=== PATIENT | male | born 1965 | race Native Hawaiian/Other Pacific Islander ===

== ENCOUNTER 2016-10-22 11:03 | Emergency (ER) | payer OTHER ==
[2016-10-22 11:16] VITALS: O2SAT 97
[2016-10-22] MEDS ORDERED: Lidocaine 5% Patch TD STA (11:35)
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
[2016-10-22] MEDS ORDERED: Lidocaine 5% Patch TD ONE (11:56)
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
[2016-10-22 12:16] VITALS: BP 150/80; PULSE 80; RESP 20; TEMP 98
== END 2016-10-22 12:14 | disposition home or self-care (01) ==
LOC: C.ER 11:03
DX: G89.29 Other chronic pain (principal); M54.5 Low back pain
CPT/HCPCS: 72100; 96372; 99283; J1885

== ENCOUNTER 2017-06-01 07:13 | Emergency (ER) | payer MEDICAID, OTHER ==
--- NOTE | 2017-06-01 07:57 | C.PDOC ---
History Of Present Illness 52 year old, with past medical history of diabetes, presents to ED for evaluation of dry cough for the past month. Patient states he experienced syncopal episode after severe coughing while on flight from [place] 2 days ago, and was given oxygen. Notes he returned from [place] yesterday. Patient admits to feeling short of breath only when coughing. He report similar coughing fits and syncope in the past. Patient is heavy smoker. Otherwise, denies chest pain, fever, chills, headache, dizziness, or any other associated symptoms at this time. Time Seen by Provider: 06/01/17 07:26 Chief Complaint (Nursing): Dizziness/Lightheaded History Per: Patient History/Exam Limitations: no limitations Onset/Duration Of Symptoms: Days Current Symptoms Are (Timing): Still Present Recent travel outside of the [place]: Yes Additional History Per: Family Past Medical History Reviewed: Historical Data, Nursing Documentation, Vital Signs Vital Signs: Last Vital Signs Temp 98.3 F 06/01/17 09:28 Pulse 62 06/01/17 09:04 Resp 21 06/01/17 09:04 BP 138/88 06/01/17 09:04 Pulse Ox 96 06/01/17 09:20 - Medical History PMH: Diabetes, HTN (PT DENIES) Denies: COPD, Emphysema Family History: States: Unknown Family Hx - Social History Hx Tobacco Use: Yes Hx Alcohol Use: No Hx Substance Use: No - Immunization History Hx Tetanus Toxoid Vaccination: No Hx Influenza Vaccination: No Hx Pneumococcal Vaccination: No Review Of Systems Except As Marked, All Systems Reviewed And Found Negative. Constitutional: Negative for: Fever, Chills Cardiovascular: Negative for: Chest Pain, Palpitations Respiratory: Positive for: Cough, Shortness of Breath. Negative for: Hemoptysis , Sputum Gastrointestinal: Negative for: Nausea, Vomiting, Abdominal Pain Neurological: Positive for: Other (syncope). Negative for: Headache, Dizziness Physical Exam - Physical Exam Appears: Non-toxic, No Acute Distress Skin: Normal Color, Warm, Dry Head: Atraumatic, Normacephalic Eye(s): bilateral: Normal Inspection, PERRL, EOMI Ear(s): Bilateral: Normal Oral Mucosa: Moist Throat: Normal, No Erythema, No Exudate Neck: Normal ROM, Supple Chest: Symmetrical Cardiovascular: Rhythm Regular, No Murmur Respiratory: Normal Breath Sounds, No Rales, No Rhonchi, No Wheezing Gastrointestinal/Abdominal: Soft, No Tenderness Extremity: Normal ROM, No Pedal Edema, No Deformity Neurological/Psych: Oriented x3, Normal Speech Gait: Steady ED Course And Treatment - Laboratory Results Result Diagrams: 06/01/17 07:55 06/01/17 07:55 Lab Interpretation: No Acute Changes ECG: Interpreted By Me, Viewed By Me ECG Rhythm: Sinus Rhythm ECG Interpretation: No Acute Changes Interpretation Of ECG: Ns at 63 bpm with rightward axis, no ST-T changes O2 Sat by Pulse Oximetry: 96 (RA) Pulse Ox Interpretation: Normal - Radiology CXR: Interpreted by Me, Viewed By Me CXR Interpretation: Yes: Heart Size. No: Infiltrates, COPD Medical Decision Making Medical Decision Making: Impression: cough x1 month, syncopal episode 1 day ago Plan: * Blood work * Urinalysis * EKG * CXR Prior records reviewed: patient has been seen in the past for similar symptoms and syncope from vasovagal Reassess: All labs reviewed and unremarkable. EKG shows no acute changes. Patient remained afebrile alert and oriented in no distress. I explained lab and imaging results. He is stable for discharge. I counseled patient on smoking cessation and advised follow up in the clinic and with pulmonology if symptoms persist. Disposition Counseled Patient/Family Regarding: Studies Performed, Diagnosis, Need For Followup, Rx Given, Smoking Cessation - Disposition Referrals: Emma Cordova MD [Staff Provider] - Disposition: HOME/ ROUTINE Disposition Time: 09:19 Condition: GOOD Additional Instructions: Follow up with your primary medical doctor or clinic in 2-5 days for further evaluation. Take medications as prescribed. Return to the emergency department at any time if symptoms persist or worsen. Prescriptions: Albuterol HFA [Ventolin HFA 90 mcg/actuation (8 g)] 1 puff IH Q4 #1 puff Prednisone 50 mg PO DAILY #5 tablet Instructions: Exacerbation of COPD (DC) Forms: [facility] (Tajik) - POA Present On Arrival: None - Clinical Impression Clinical Impression: Syncope, COPD (chronic obstructive pulmonary disease) - PA / FOREST PATHOLOGIST / Resident Statement MD/DO has reviewed & agrees with the documentation as recorded. - Scribe Statement The provider has reviewed the documentation as recorded by the Scribe Ching Washburn All medical record entries made by the Scribe were at my direction and personally dictated by me. I have reviewed the chart and agree that the record accurately reflects my personal performance of the history, physical exam, medical decision making, and the department course for this patient. I have also personally directed, reviewed, and agree with the discharge instructions and disposition.
[2017-06-01 08:01] LABS: BASO # 0.1 K/uL (0.0-0.2); BASO % 0.9 % (0.0-2.0); EOS # 0.3 K/uL (0.0-0.7); HEMOGLOBIN 14.9 g/dL (12.0-18.0); LYMPH # 2.2 K/uL (1.0-4.3); LYMPH % 27.6 % (20.0-40.0); MEAN CELL VOLUME 85.9 fL (80.0-94.0); MEAN CORPUSCULAR HEMOGLOBIN 29.9 pg (27.0-31.0); MEAN CORPUSCULAR HGB CONC 34.8 g/dL (33.0-37.0); MEAN PLATELET VOLUME 7.6 fL (7.2-11.7); MONO # 0.6 K/uL (0.0-0.8); MONO % 7.2 % (0.0-10.0); NEUT # 4.8 K/uL (1.8-7.0); NEUT % 60.3 % (50.0-75.0); NRBC % 0.1 % (0.0-2.0); RED CELL DISTRIBUTION WIDTH 13.1 % (11.5-14.5); WHITE BLOOD COUNT 7.9 K/uL (4.8-10.8)
[2017-06-01 08:08] LABS: INR 1.1
[2017-06-01 08:27] LABS: SQUAMOUS EPITHIAL 1 /hpf (0-5); URINE BILIRUBIN NEGATIVE (NEGATIVE); URINE BLOOD NEGATIVE (NEGATIVE); URINE CLARITY Clear (Clear); URINE COLOR Yellow (YELLOW); URINE GLUCOSE (UA) NORMAL (Normal); URINE LEUKOCYTE ESTERASE NEG Leu/uL (Negative); URINE PROTEIN NEGATIVE (NEGATIVE); URINE UROBILINOGEN NORMAL mg/dL (0.2-1.0)
[2017-06-01 08:34] LABS: ALB/GLOB RATIO 1.1 (1.0-2.1); ALBUMIN 4.1 g/dL (3.5-5.0); ALT/SGPT 42 U/L (21-72); AST/SGOT 40 U/L (17-59); BLOOD UREA NITROGEN 11 mg/dL (9-20); CALCIUM 8.8 mg/dl (8.6-10.4); GFR AFRICAN-AMERICAN > 60; GFR NON-AFRICAN AMERICAN > 60; HDL CHOLESTEROL 38 mg/dL (30-70)
[2017-06-01 08:45] LABS: LDL CHOLESTEROL 135 mg/dL (0-129)
[2017-06-01 08:50] LABS: B-TYPE NATRIURETIC PEPTIDE 58.4 pg/mL (0-900); CK-MB 11.1 ng/mL (0.0-3.38)
[2017-06-01 09:04] VITALS: BP 138/88; PULSE 62; RESP 21
[2017-06-01 09:21] VITALS: O2SAT 96
[2017-06-01 09:28] VITALS: TEMP 98.3
--- NOTE | 2017-06-01 10:03 | RAD ---
Chest x-ray single frontal view History: Cough. Shortness of breath. Comparison: None available. Findings: Mild venous congestion. Right hilar prominence. Mild patchy increased markings at the left lung base. Upper lobe granulomatous changes. Heart size within normal limits. Impression: Mild venous congestion. Right hilar prominence. Mild patchy increased markings at the left lung base. Upper lobe granulomatous changes.
== END 2017-06-01 09:30 | disposition home or self-care (01) ==
LOC: C.ER 07:13
DX: J44.9 Chronic obstructive pulmonary disease, unspecified (principal); R55 Syncope and collapse; Z72.0 Tobacco use

== ENCOUNTER 2018-02-06 14:31 | Emergency (ER) | payer MEDICAID, OTHER ==
[2018-02-06 14:52] VITALS: RESP 18; TEMP 97.5
--- NOTE | 2018-02-06 16:01 | RAD ---
Date of service: 02/06/2018 PROCEDURE: Radiographs of the Left Shoulder HISTORY: r/o fx COMPARISON: No prior. FINDINGS: BONES: No fracture seen. An approximately 4 mm ossification closely approximates the humeral tuberosities-calcific rotator cuff tendinopathy and/or calcific bursitis are bleed most likely considerations. A pedunculated osteophyte although not excluded appears less likely. JOINTS: Minimal acromioclavicular and minimal glenohumeral arthrosis. Mild left apophyseal joint arthropathy noted. Moderate right lateral thoracic marginal osteophytosis. SOFT TISSUES: Normal. OTHER FINDINGS: None. IMPRESSION: No fracture or lytic lesions. Probable left calcific rotator cuff tendinopathy and/or calcific bursitis.
[2018-02-06 16:19] VITALS: BP 138/72; PULSE 72; O2SAT 98
--- NOTE | 2018-02-06 17:46 | C.PDOC ---
History Of Present Illness 52 y/o male presents to the ER complaining of left shoulder pain which has been present for the past 1 week. Patient stated that he took Motrin with relief. Denies having trauma,fall, injuries, CP, SOB, weakness and numbness in left arm. Time Seen by Provider: 02/06/18 14:50 Chief Complaint (Nursing): Upper Extremity Problem/Injury History Per: Patient History/Exam Limitations: no limitations Onset/Duration Of Symptoms: Days Current Symptoms Are (Timing): Still Present Severity: Moderate Past Medical History Reviewed: Historical Data, Nursing Documentation, Vital Signs Vital Signs: Last Vital Signs Temp 97.5 F L 02/06/18 14:48 Pulse 72 02/06/18 16:18 Resp 18 02/06/18 16:18 BP 138/72 02/06/18 16:18 Pulse Ox 98 02/06/18 16:18 - Medical History PMH: Diabetes, HTN (PT DENIES) Denies: COPD, Emphysema Surgical History: No Surg Hx Family History: States: No Known Family Hx - Social History Hx Tobacco Use: Yes Hx Alcohol Use: No Hx Substance Use: No - Immunization History Hx Tetanus Toxoid Vaccination: No Hx Influenza Vaccination: No Hx Pneumococcal Vaccination: No Review Of Systems Except As Marked, All Systems Reviewed And Found Negative. Cardiovascular: Negative for: Chest Pain Respiratory: Negative for: Shortness of Breath Musculoskeletal: Positive for: Shoulder Pain (left shoulder pain) Neurological: Negative for: Weakness, Numbness Physical Exam - Physical Exam Appears: Non-toxic, No Acute Distress Skin: Normal Color, Warm, Dry Head: Atraumatic, Normacephalic Eye(s): bilateral: Normal Inspection Nose: Normal Oral Mucosa: Moist Neck: Supple Chest: Symmetrical Cardiovascular: Rhythm Regular Respiratory: Normal Breath Sounds, No Rales, No Rhonchi, No Wheezing Extremity: Normal ROM, Tenderness (tenderness to lateral aspect of left shoulder), No Swelling Neurological/Psych: Oriented x3, Normal Speech ED Course And Treatment O2 Sat by Pulse Oximetry: 98 (RA) Pulse Ox Interpretation: Normal - Other Rad N-Lhr-Yilcetcv X-Ray: Viewed By Me, Read By Radiologist Interpretation: Date of service: 02/06/2018. PROCEDURE: Radiographs of the Left Shoulder. HISTORY: r/o fx. COMPARISON: No prior. FINDINGS: BONES: No fracture seen. An approximately 4 mm ossification closely approximates the humeral tuberosities-calcific rotator cuff tendinopathy and/or calcific bursitis are bleed most likely considerations. A pedunculated osteophyte although not excluded appears less likely. JOINTS: Minimal acromioclavicular and minimal glenohumeral arthrosis. Mild left apophyseal joint arthropathy noted. Moderate right lateral thoracic marginal osteophytosis. SOFT TISSUES: Normal. OTHER FINDINGS: None. IMPRESSION: No fracture or lytic lesions. Probable left calcific rotator cuff tendinopathy and/or calcific bursitis. Medical Decision Making Medical Decision Making: Plan: --X-Ray-Left Shoulder Updates: X-Ray-Left Shoulder is negative for fracture. Patient has been discharged and instructed to follow up with PMD in 2-3 days. Disposition - Disposition Referrals: Kyung Jason, [Non-Staff] - Disposition: HOME/ ROUTINE Disposition Time: 16:00 Condition: GOOD Additional Instructions: HERO WALLACE, thank you for letting us take care of you today. The emergency medical care you received today was directed at your acute symptoms. If you were prescribed any medication, please fill it and take as directed. It may take several days for your symptoms to resolve. Return to the Emergency Department if your symptoms worsen, do not improve, or if you have any other problems. Please contact your doctor or call one of the physicians/clinics you have been referred to that are listed on the Patient Visit Information form that is included in your discharge packet. Bring any paperwork you were given at discharge with you along with any medications you are taking to your follow up visit. Our treatment cannot replace ongoing medical care by a primary care provider outside of the emergency department. Thank you for allowing the [facility] team to be part of your care today. Levon patel pwith your [facility] care dcotor in 2-3 days for re-evaluation and further management. Prescriptions: Cyclobenzaprine [Cyclobenzaprine HCl] 10 mg PO Q8 PRN #20 tab PRN Reason: Muscle Spasm Ibuprofen [Motrin] 600 mg PO Q6 PRN #20 tab PRN Reason: Pain, Moderate (4-7) Instructions: Shoulder Sprain (DC) Forms: [employer] (Barbadian) - Clinical Impression Clinical Impression: Shoulder sprain - Scribe Statement The provider has reviewed the documentation as recorded by the Sylvia Johnson Provider Attestation: All medical record entries made by the Sylvia were at my direction and personally dictated by me. I have reviewed the chart and agree that the record accurately reflects my personal performance of the history, physical exam, medical decision making, and the department course for this patient. I have also personally directed, reviewed, and agree with the discharge instructions and disposition.
== END 2018-02-06 16:19 | disposition home or self-care (01) ==
LOC: C.ER 14:31
DX: S43.402A Unspecified sprain of left shoulder joint, initial encounter (principal); X58.XXXA Exposure to other specified factors, initial encounter

== ENCOUNTER 2018-05-22 13:32 | Observation (INO) | payer OTHER ==
[2018-05-22 13:51] VITALS: BMI 30.7
[2018-05-22] MEDS ORDERED: Aspirin 325 mg EC Tablets PO STA (13:55)
[2018-05-22 14:10] LABS: BASO % 0.2 % (0.0-2.0); EOS # 0.4 K/uL (0.0-0.7); EOS % 4.6 % (0.0-4.0); HEMOGLOBIN 15.3 g/dL (12.0-18.0); LYMPH # 2.8 K/uL (1.0-4.3); LYMPH % 34.4 % (20.0-40.0); MEAN CELL VOLUME 87.3 fL (80.0-94.0); MEAN CORPUSCULAR HEMOGLOBIN 29.9 pg (27.0-31.0); MEAN CORPUSCULAR HGB CONC 34.3 g/dL (33.0-37.0); MEAN PLATELET VOLUME 7.7 fL (7.2-11.7); MONO # 0.6 K/uL (0.0-0.8); MONO % 7.7 % (0.0-10.0); NEUT # 4.2 K/uL (1.8-7.0); NEUT % 53.1 % (50.0-75.0); NRBC % 0.1 % (0.0-2.0); RBC 5.1 Mil/uL (4.40-5.90); RED CELL DISTRIBUTION WIDTH 13.2 % (11.5-14.5)
--- NOTE | 2018-05-22 14:26 | RAD ---
HISTORY: SOB COMPARISON: Chest x-ray performed 06/01/17 TECHNIQUE: Chest, one view. FINDINGS: Examination limited by habitus. LUNGS: No focal consolidation. Please note that chest x-ray has limited sensitivity for the detection of pulmonary masses. PLEURA: No significant pleural effusion identified. No definite pneumothorax . CARDIOVASCULAR: Heart size appears within normal limits. OSSEOUS STRUCTURES: Degenerative changes. VISUALIZED UPPER ABDOMEN: Unremarkable. OTHER FINDINGS: None. IMPRESSION: No focal consolidation identified.
[2018-05-22 14:31] LABS: ALB/GLOB RATIO 1.5 (1.0-2.1); ALBUMIN 4.6 g/dL (3.5-5.0); ALT/SGPT 22 U/L (21-72); AST/SGOT 37 U/L (17-59); BLOOD UREA NITROGEN 12 mg/dL (9-20); CALCIUM 9.6 mg/dl (8.6-10.4); GFR NON-AFRICAN AMERICAN > 60
[2018-05-22 14:40] LABS: B-TYPE NATRIURETIC PEPTIDE 29.8 pg/mL (0-900)
--- NOTE | 2018-05-22 15:06 | C.PDOC ---
History Of Present Illness 53 year old male presents to ED with complaint of chest pain for the past 2 days. Patient also complaining of associated SOB. He had a PMHx of hyperlipidemia and diabetes. Patient is a smoker. He denies nausea and vomiting. Time Seen by Provider: 05/22/18 13:50 Chief Complaint (Nursing): Chest Pain History Per: Patient History/Exam Limitations: no limitations Onset/Duration Of Symptoms: Days (2) Current Symptoms Are (Timing): Still Present Quality: "Pain" Associated Symptoms: Dyspnea. denies: Nausea Modifying Factors: None Alleviating Factors: None Past Medical History Reviewed: Historical Data, Nursing Documentation, Vital Signs Vital Signs: Last Vital Signs Temp 98.0 F 05/22/18 13:34 Pulse 67 05/22/18 14:11 Resp 18 05/22/18 14:11 BP 152/82 H 05/22/18 14:11 Pulse Ox 96 05/22/18 14:11 - Medical History PMH: Diabetes, HTN (PT DENIES) Denies: COPD, Emphysema Surgical History: No Surg Hx Family History: States: Unknown Family Hx - Social History Hx Tobacco Use: Yes Hx Alcohol Use: No Hx Substance Use: No - Immunization History Hx Tetanus Toxoid Vaccination: No Hx Influenza Vaccination: No Hx Pneumococcal Vaccination: No Review Of Systems Except As Marked, All Systems Reviewed And Found Negative. Cardiovascular: Positive for: Chest Pain Respiratory: Positive for: Shortness of Breath Gastrointestinal: Negative for: Nausea, Vomiting Physical Exam - Physical Exam Appears: Well, Non-toxic, No Acute Distress Skin: Normal Color, Warm, Dry Head: Atraumatic, Normacephalic Eye(s): bilateral: Normal Inspection, PERRL, EOMI Chest: Symmetrical, No Deformity, No Tenderness Cardiovascular: Rhythm Regular, No Murmur Respiratory: Normal Breath Sounds, No Rales, No Rhonchi, No Wheezing Gastrointestinal/Abdominal: Soft, No Tenderness Extremity: Bilateral: Atraumatic, Normal Color And Temperature, Normal ROM Neurological/Psych: Oriented x3, Normal Speech, Normal Cognition ED Course And Treatment - Laboratory Results Result Diagrams: 05/23/18 06:02 05/23/18 05:45 Lab Results: Troponin I < 0.0120 ng/mL (0.00-0.120) 05/22/18 14:06 NT-Pro-B Natriuret Pep 29.8 pg/mL (0-900) 05/22/18 14:06 Total Bilirubin 0.6 mg/dL (0.2-1.3) 05/22/18 14:06 AST 37 U/L (17-59) 05/22/18 14:06 ALT 22 U/L (21-72) 05/22/18 14:06 Alkaline Phosphatase 56 U/L (38-126) 05/22/18 14:06 Total Protein 7.7 g/dL (6.3-8.3) 05/22/18 14:06 Albumin 4.6 g/dL (3.5-5.0) 05/22/18 14:06 Globulin 3.1 gm/dL (2.2-3.9) 05/22/18 14:06 Albumin/Globulin Ratio 1.5 (1.0-2.1) 05/22/18 14:06 O2 Sat by Pulse Oximetry: 96 (in RA) - Other Rad CXR X-Ray: Interpreted by Me, Viewed By Me Interpretation: IMPRESSION: No focal consolidation identified. Medical Decision Making Medical Decision Making: Assessment: Chest pain Plan: EKG and CXR ordered for patient Labs ordered with troponin and CBC Patient given Aspirin PO Patient admitted to 's service for observation. Disposition - Disposition Disposition: HOSPITALIZED Disposition Time: 16:05 Condition: GOOD - Clinical Impression Clinical Impression: Chest pain - Scribe Statement The provider has reviewed the documentation as recorded by the Scribe (Hollie Watts) All medical record entries made by the Scribe were at my direction and personally dictated by me. I have reviewed the chart and agree that the record accurately reflects my personal performance of the history, physical exam, medical decision making, and the department course for this patient. I have also personally directed, reviewed, and agree with the discharge instructions and disposition.
[2018-05-22] MEDS ORDERED: Heparin25000 units/250ml 1/2NS 25,000 UNITS/250 ML BAG IV PRN (19:41)
--- NOTE | 2018-05-22 19:59 | PCM.RRT ---
CONSULTING TECHNICAL MANAGER Nurses Assessment - Situation Date: 05/22/18 Time CONSULTING TECHNICAL MANAGER was called: 19:38 CONSULTING TECHNICAL MANAGER Responder Arrival Time:: 19:38 CONSULTING TECHNICAL MANAGER Location:: Med/Surg CONSULTING TECHNICAL MANAGER Reason for Call: Chest Pain (EKG changes) CONSULTING TECHNICAL MANAGER Called By: Physician - Respiratory CONSULTING TECHNICAL MANAGER Delivery Method: Nasal Cannula @L/min (5) Received Nebulizer Treatments: No Was the Patient Ventilated with Bag/Mask 100% O2?: No Secretions Suctioned?: No Was the Patient Intubated?: No Was the Patient Placed on a Ventilator?: No - Diagnostic Test Ordered EKG: Yes (ST elevation inferior leads) Chest X-Ray: No CT Scan: No CPR started during CONSULTING TECHNICAL MANAGER?: No - Vital Signs Vital Signs: 141/82 BP, 69 HR, 98% SpO2 on 3L NC - Adriana Coma Scale Coma Scale Eye Opening: Spontaneous Coma Scale Motor: Obeys Commands Movement Coma Scale Verbal: Oriented Coma Scale Total: 15 - Recommendations 5) CONSULTING TECHNICAL MANAGER Level of Care Recommendations: Transfer to ICU Plan - Assessment of Findings&Treatment Plan CONSULTING TECHNICAL MANAGER called at 7: 38PM for chest pain and EKG changes which was immediately converted into a Code Heart. Patient vitals on arrival: 141/82 BP, 69 HR, 98% SpO2 on 3L NC. Patient endorsed 6/10 left sided chest pain and mild shortness of breath. Patient given ASA at 2pm in the ED. At the time of Code Heart, patient was given Brillenta 180mg, Crestor 40mg, Heparin 5000mg IV, followed by a heparin drip. Patient reported no change in pain. Vitals remained stable. Patient was transferred to ICU at 8:03PM then to the general labor forklift operator at 8:10PM where he underwent cardiac cath by Dr. Ellsworth. Patient was found to have Patent coronaries, Sluggish JOSE A 2 coronary flow, and Normal EF. Plan for ASA, aggressive Statins, BP control, diet, smoking cessation and weight management for now. Patient to return to ICU for overnight observation.
[2018-05-22] MEDS ORDERED: Iodixanol 320 MG/ML 100 ML BOTTLE IV ONE (20:13)
[2018-05-22] MEDS ORDERED: Lidocaine 2% MPF (5 ml) Inj ONE (20:14)
[2018-05-22] MEDS ORDERED: Midazolam 2 MG/2 ML VIAL ONE (20:28)
--- NOTE | 2018-05-22 21:19 | CP.PCM.CON ---
History of Present Illness - History of Present Illness History of Present Illness: Code heart activated due to Inferior ST elevation and ongoing left sided chest discomfort Hx of DM2. HTN, hyperlipidemia, obesity, Tobacco, FHx of [place] S/P Cath 1. Patent coronaries 2. Sluggish JOSE A 2 coronary flow 3. Normal EF Plan: ASA, aggressive Statins, BP, diet, smokiing cessation and weight management for now Overnight ICU observation Transfer to floor in am Past Patient History - Past Social History Smoking Status: Heavy Smoker > 10 Cigarettes Daily - CARDIAC Hx Hypertension: Yes (PT DENIES) - PULMONARY Hx Chronic Obstructive Pulmonary Disease (COPD): No Hx Emphysema: No - NEUROLOGICAL Hx Neurological Disorder: Yes Hx Dizziness: Yes - ENDOCRINE/METABOLIC Hx Endocrine Disorders: Yes Hx Diabetes Mellitus Type 2: Yes - MUSCULOSKELETAL/RHEUMATOLOGICAL Hx Falls: No - PSYCHIATRIC Hx Substance Use: No - SURGICAL HISTORY Hx Surgeries: No - ANESTHESIA Hx Anesthesia: No Meds Allergies/Adverse Reactions: Allergies Allergy/AdvReac Type Severity Reaction Status Date / Time No Known Allergies Allergy Verified 05/22/18 13:49 - Medications Medications: Current Medications Aspirin (Ecotrin) 81 mg PO DAILY [facility] Enoxaparin Sodium (Lovenox) 40 mg SC DAILY [facility] Sodium Chloride (Sodium Chloride 0.9%) 1,000 mls @ 80 mls/hr IV .[id number] [facility] Stop: 05/23/18 23:59 Nitroglycerin (Nitrostat Sl Tab) 0.4 mg SL Q5M PRN PRN Reason: chest pain Last Admin: 05/22/18 19:21 Dose: 0.4 mg Pantoprazole Sodium (Protonix Ec Tab) 20 mg PO DAILY [facility] Rosuvastatin Calcium (Crestor) 20 mg PO HS [facility] Results - Vital Signs Recent Vital Signs: Last Vital Signs Temp 98.2 F 05/22/18 19:25 Pulse 71 05/22/18 19:31 Resp 20 05/22/18 19:31 BP 126/73 05/22/18 19:31 Pulse Ox 96 05/22/18 19:22 - Labs Result Diagrams: 05/22/18 14:06 05/22/18 14:06 Labs: Laboratory Results - last 24 hr 05/22/18 05/22/18 05/22/18 14:06 14:06 17:58 WBC 8.0 RBC 5.10 Hgb 15.3 Hct 44.5 MCV 87.3 MCH 29.9 MCHC 34.3 RDW 13.2 Plt Count 253 MPV 7.7 Neut % (Auto) 53.1 Lymph % (Auto) 34.4 Bath % (Auto) 7.7 Eos % (Auto) 4.6 H Baso % (Auto) 0.2 Neut # (Auto) 4.2 Lymph # (Auto) 2.8 Bath # (Auto) 0.6 Eos # (Auto) 0.4 Baso # (Auto) 0.0 Sodium 136 Potassium 4.1 Chloride 99 Carbon Dioxide 27 Anion Gap 13 BUN 12 Creatinine 0.8 Est GFR ( Amer) > 60 Est GFR (Non-Af Amer) > 60 POC Glucose (mg/dL) 160 H Random Glucose 106 D Calcium 9.6 Total Bilirubin 0.6 AST 37 ALT 22 Alkaline Phosphatase 56 Troponin I < 0.0120 NT-Pro-B Natriuret Pep 29.8 Total Protein 7.7 Albumin 4.6 Globulin 3.1 Albumin/Globulin Ratio 1.5 05/22/18 19:43 WBC RBC Hgb Hct MCV MCH MCHC RDW Plt Count MPV Neut % (Auto) Lymph % (Auto) Bath % (Auto) Eos % (Auto) Baso % (Auto) Neut # (Auto) Lymph # (Auto) Bath # (Auto) Eos # (Auto) Baso # (Auto) Sodium Potassium Chloride Carbon Dioxide Anion Gap BUN Creatinine Est GFR ( Amer) Est GFR (Non-Af Amer) POC Glucose (mg/dL) 179 H Random Glucose Calcium Total Bilirubin AST ALT Alkaline Phosphatase Troponin I NT-Pro-B Natriuret Pep Total Protein Albumin Globulin Albumin/Globulin Ratio
[2018-05-22] MEDS: Sodium Chloride 0.9% 1,000 ML IV SCH (21:46)
--- NOTE | 2018-05-22 22:05 | CP.PCM.HP ---
Present on Admission - Present on Admission Any Indicators Present on Admission: No Past Patient History - Past Social History Smoking Status: Heavy Smoker > 10 Cigarettes Daily - CARDIAC Hx Hypertension: Yes (PT DENIES) - PULMONARY Hx Chronic Obstructive Pulmonary Disease (COPD): No Hx Emphysema: No - NEUROLOGICAL Hx Neurological Disorder: Yes Hx Dizziness: Yes - ENDOCRINE/METABOLIC Hx Endocrine Disorders: Yes Hx Diabetes Mellitus Type 2: Yes - MUSCULOSKELETAL/RHEUMATOLOGICAL Hx Falls: No - PSYCHIATRIC Hx Substance Use: No - SURGICAL HISTORY Hx Surgeries: No - ANESTHESIA Hx Anesthesia: No Meds Allergies/Adverse Reactions: Allergies Allergy/AdvReac Type Severity Reaction Status Date / Time No Known Allergies Allergy Verified 05/22/18 13:49 Results - Vital Signs Recent Vital Signs: Last Vital Signs Temp 98.2 F 05/22/18 19:25 Pulse 71 05/22/18 19:31 Resp 20 05/22/18 19:31 BP 126/73 05/22/18 19:31 Pulse Ox 96 05/22/18 19:22 - Labs Result Diagrams: 05/22/18 14:06 05/22/18 14:06 Labs: Laboratory Results - last 24 hr 05/22/18 05/22/18 05/22/18 14:06 14:06 17:58 WBC 8.0 RBC 5.10 Hgb 15.3 Hct 44.5 MCV 87.3 MCH 29.9 MCHC 34.3 RDW 13.2 Plt Count 253 MPV 7.7 Neut % (Auto) 53.1 Lymph % (Auto) 34.4 Cook % (Auto) 7.7 Eos % (Auto) 4.6 H Baso % (Auto) 0.2 Neut # (Auto) 4.2 Lymph # (Auto) 2.8 Cook # (Auto) 0.6 Eos # (Auto) 0.4 Baso # (Auto) 0.0 Sodium 136 Potassium 4.1 Chloride 99 Carbon Dioxide 27 Anion Gap 13 BUN 12 Creatinine 0.8 Est GFR ( Amer) > 60 Est GFR (Non-Af Amer) > 60 POC Glucose (mg/dL) 160 H Random Glucose 106 D Calcium 9.6 Total Bilirubin 0.6 AST 37 ALT 22 Alkaline Phosphatase 56 Troponin I < 0.0120 NT-Pro-B Natriuret Pep 29.8 Total Protein 7.7 Albumin 4.6 Globulin 3.1 Albumin/Globulin Ratio 1.5 05/22/18 05/22/18 19:43 21:47 WBC RBC Hgb Hct MCV MCH MCHC RDW Plt Count MPV Neut % (Auto) Lymph % (Auto) Cook % (Auto) Eos % (Auto) Baso % (Auto) Neut # (Auto) Lymph # (Auto) Cook # (Auto) Eos # (Auto) Baso # (Auto) Sodium Potassium Chloride Carbon Dioxide Anion Gap BUN Creatinine Est GFR ( Amer) Est GFR (Non-Af Amer) POC Glucose (mg/dL) 179 H 158 H Random Glucose Calcium Total Bilirubin AST ALT Alkaline Phosphatase Troponin I NT-Pro-B Natriuret Pep Total Protein Albumin Globulin Albumin/Globulin Ratio
[2018-05-22 22:54] LABS: CK-MB 2.02 ng/mL (0.0-3.38)
[2018-05-23 06:10] LABS: HEMOGLOBIN 14.4 g/dL (12.0-18.0); MEAN CELL VOLUME 87.3 fL (80.0-94.0); MEAN CORPUSCULAR HEMOGLOBIN 29.5 pg (27.0-31.0); MEAN CORPUSCULAR HGB CONC 33.8 g/dL (33.0-37.0); MEAN PLATELET VOLUME 7.9 fL (7.2-11.7); RBC 4.86 Mil/uL (4.40-5.90); RED CELL DISTRIBUTION WIDTH 13.4 % (11.5-14.5); WHITE BLOOD COUNT 7.8 K/uL (4.8-10.8)
[2018-05-23 06:21] LABS: BLOOD UREA NITROGEN 10 mg/dL (9-20); CALCIUM 8.6 mg/dl (8.6-10.4); GFR NON-AFRICAN AMERICAN > 60; HDL CHOLESTEROL 33 mg/dL (30-70)
[2018-05-23 06:32] LABS: LDL CHOLESTEROL 106 mg/dL (0-129)
[2018-05-23 06:33] LABS: CK-MB 2.45 ng/mL (0.0-3.38)
[2018-05-23] MEDS: Sodium Chloride 0.9% 1,000 ML IV SCH (09:48)
[2018-05-23] MEDS ORDERED: Enoxaparin 40 mg Syringe SC SCH (10:00)
[2018-05-23] MEDS ORDERED: Pantoprazole 20 mg EC Tab PO SCH (10:00)
--- NOTE | 2018-05-23 11:06 | CARD ---
APPROVED REPORT Date of service: 05/22/2018 EKG Measurement Heart [id number] <Conclusion> Sinus rhythm with premature atrial complexes with aberrant conduction Rightward axis Borderline ECG
--- NOTE | 2018-05-23 11:09 | CARD ---
APPROVED REPORT Date of service: 05/22/2018 EKG Measurement Heart [id number] <Conclusion> Normal sinus rhythm Rightward axis Borderline ECG
--- NOTE | 2018-05-23 16:08 | CP.PCM.PN ---
Subjective - Date & Time of Evaluation Date of Evaluation: 05/23/18 Time of Evaluation: 16:07 - Subjective Subjective: PATIENT SEEN AND EXAMINED AT THE BEDSIDE Objective - Vital Signs/Intake and Output Vital Signs (last 24 hours): Temp Pulse Resp BP Pulse Ox 97.9 F 60 18 123/72 94 L 05/23/18 08:00 05/23/18 09:01 05/23/18 09:01 05/23/18 09:01 05/23/18 09:01 Intake and Output: 05/23/18 05/23/18 06:59 18:59 Intake Total 900 770 Output Total 600 700 Balance 300 70 - Medications Medications: Current Medications Aspirin (Ecotrin) 81 mg PO DAILY [facility] Last Admin: 05/23/18 09:46 Dose: 81 mg Enoxaparin Sodium (Lovenox) 40 mg SC DAILY [facility] Last Admin: 05/23/18 09:46 Dose: 40 mg Sodium Chloride (Sodium Chloride 0.9%) 1,000 mls @ 80 mls/hr IV .[id number] [facility] Stop: 05/23/18 23:59 Last Admin: 05/23/18 09:48 Dose: 80 mls/hr Nitroglycerin (Nitrostat Sl Tab) 0.4 mg SL Q5M PRN PRN Reason: chest pain Last Admin: 05/22/18 19:21 Dose: 0.4 mg Pantoprazole Sodium (Protonix Ec Tab) 20 mg PO DAILY [facility] Last Admin: 05/23/18 09:46 Dose: 20 mg Rosuvastatin Calcium (Crestor) 20 mg PO HS [facility] - Labs Labs: 05/23/18 06:02 05/23/18 05:45 Assessment and Plan - Assessment and Plan (Free Text) Assessment: FOLLOW UP WITH DR LLOYD IN HIS OFFICE FOLLOW UP WITH DR ROJAS IN HIS OFFICE CONTINUE HOME MEDICATION NEW PRESCRIPTION GIVEN ASPIRIN 81 MG PO DIALY CRESTOR 20 MG PO DAILY PROTONIX 20 MG PO DAILY [facility] CALL DR LLOYD OR GO TO THE EMERGENCY ROOM IF SYMPTOM RETURN OR WORSENING
[2018-05-23 16:58] VITALS: BP 123/75; PULSE 68; RESP 21
[2018-05-23 17:04] VITALS: TEMP 97.6
--- NOTE | 2018-05-23 20:28 | CARD ---
APPROVED REPORT Date of service: 05/23/2018 EXAM: Two-dimensional and M-mode echocardiogram with Doppler and color Doppler. Other Information Quality : GoodRhythm : INDICATION Dyspnea Chest Pain 2D DIMENSIONS IVSd1.0 (0.7-1.1cm)LVDd4.1 (3.9-5.9cm) PWd1.0 (0.7-1.1cm)LVDs2.3 (2.5-4.0cm) FS (%) 45.2 %LVEF (%)77.0 (>50%) LVEF (Mathew's)76.23 %IVC0.00 cm M-Mode DIMENSIONS RVDd2.58 (2.1-3.2cm)Left Atrium (MM)2.95 (2.5-4.0cm) IVSd1.06 (0.7-1.1cm)Aortic Root2.64 (2.2-3.7cm) LVDd4.35 (4.0-5.6cm)Aortic Cusp Exc.2.05 (1.5-2.0cm) PWd1.09 (0.7-1.1cm)FS (%) 44 % LVDs2.45 (2.0-3.8cm)TAPSE14.58 cm LVEF (%)75 (>50%) Mitral Valve MV E Zwshkhlf77.1cm/sMV A Ayxdjfce90.1cm/sE/A ratio1.3 TDI Lateral E' Peak V11.71cm/sMedial E' Peak V9.19cm/sE/Lateral E'5.9 E/Medial E'7.5 Tricuspid Valve TR Peak Doonurld425eo/sTR Peak Gr.[id number] LEFT VENTRICLE The left ventricle is normal size. There is normal left ventricular wall thickness. The left ventricular function is normal. The left ventricular ejection fraction is within the normal range. No regional wall motion abnormalities noted. The left ventricular diastolic function is normal. No left ventricle thrombus noted on this study. There is no ventricular septal defect visualized. There is no left ventricular aneurysm. There is no mass noted in the left ventricle. RIGHT VENTRICLE The right ventricle is normal size. There is normal right ventricular wall thickness. The right ventricular systolic function is normal. ATRIA The left atrium size is normal. The right atrium size is normal. The interatrial septum is intact with no evidence for an atrial septal defect. AORTIC VALVE The aortic valve is normal in structure and function. No aortic regurgitation is present. There is no aortic valvular stenosis. There is no aortic valvular vegetation. MITRAL VALVE The mitral valve is normal in structure and function. There is no evidence of mitral valve prolapse. There is no mitral valve stenosis. There is no mitral valve regurgitation noted. TRICUSPID VALVE The tricuspid valve is normal in structure and function. There is no tricuspid valve regurgitation noted. There is no tricuspid valve prolapse or vegetation. There is no tricuspid valve stenosis. PULMONIC VALVE The pulmonary valve is normal in structure and function. There is no pulmonic valvular regurgitation. There is no pulmonic valvular stenosis. GREAT VESSELS The aortic root is normal in size. The ascending aorta is normal in size. The pulmonary artery is normal. The IVC is normal in size and collapses >50% with inspiration. PERICARDIAL EFFUSION The pericardium appears normal. There is no pleural effusion. <Conclusion> The left ventricular function is normal. The left ventricular ejection fraction is within the normal range. No regional wall motion abnormalities noted.
--- NOTE | 2018-05-24 03:42 | HP ---
CHIEF COMPLAINT: Chest pain x1 day. HISTORY OF PRESENT ILLNESS: This is a 53-year-old [place] male with a history of smoking, hypertension, hyperlipidemia, type 2 diabetes. He is compliant with his diet, medication and followup. The patient smokes 1 pack per day, sometimes more. The patient was all right. He has no fever. He has chest pain, dull, nonradiating, not associated with diaphoresis. No cough. No sore throat. He denied any nausea, vomiting, or dyspepsia. He denies any hemoptysis, melena, or hematochezia. He denies any history of polyuria, polydipsia, or polyphagia. He denies any history of urinary incontinence. He denies any tingling, numbness, paresthesias of the feet. He denies shortness of breath. PAST MEDICAL HISTORY: Diabetes, hypertension, hyperlipidemia, obesity. SOCIAL HISTORY: He smokes and he drinks socially. FAMILY HISTORY: Negative for premature coronary artery disease. PHYSICAL EXAMINATION: GENERAL: Alert, oriented [place] male, in no acute distress. He is status post cardiac cath. VITAL SIGNS: Blood pressure is 130/78, pulse 72, respiratory rate 16, temperature 99. SKIN: No rash. No bruises. No purpura. No petechiae. No ecchymosis. HEENT: Atraumatic and normocephalic. Negative pallor. Negative jaundice. Extraocular movements are intact. NECK: Supple. No JVD. No lymph nodes. No thyromegaly. CHEST WALL: Bilateral symmetrical expansion. No tenderness. No deformity. LUNGS: Clear. No rales. No rhonchi. CARDIOVASCULAR SYSTEM: PMI in fifth intercostal space. S1 and S2, regular. No heave. No thrill. ABDOMEN: Soft, nontender. Bowel sounds are positive. RECTAL: No masses. No bleeding. EXTREMITIES: No clubbing, cyanosis, or edema. CENTRAL NERVOUS SYSTEM: The patient is awake, alert, oriented x3. Cranial nerves II through XII are normal. Power 5/5 x4. Plantars are downgoing. ASSESSMENT: 1. Chest pain, rule out acute myocardial infarction, rule out coronary artery disease, status post cardiac catheterization. 2. Hypertension, controlled. 3. Type 2 diabetes, controlled. 4. Hyperlipidemia/smoking. PLAN: Admit. Monitor the patient. Surya Nicole MD [facility] # [id number]
--- NOTE | 2018-05-24 08:18 | CP.PCM.PN ---
Subjective - Date & Time of Evaluation Date of Evaluation: 05/23/18 Time of Evaluation: 08:10 - Subjective Subjective: Patient seen and evaluated Denies chest pain and dyspnea Review Of Systems Except As Marked, All Systems Reviewed And Found Negative. Cardiovascular: no Chest Pain Respiratory: No Shortness of Breath Gastrointestinal: Negative for: Nausea, Vomiting Physical Exam - Physical Exam Appears: Well, Non-toxic, No Acute Distress Skin: Normal Color, Warm, Dry Head: Atraumatic, Normacephalic Eye(s): bilateral: Normal Inspection, PERRL, EOMI Chest: Symmetrical, No Deformity, No Tenderness Cardiovascular: Rhythm Regular, No Murmur Respiratory: Normal Breath Sounds, No Rales, No Rhonchi, No Wheezing Gastrointestinal/Abdominal: Soft, No Tenderness Extremity: Bilateral: Atraumatic, Normal Color And Temperature, Normal ROM Neurological/Psych: Oriented x3, Normal Speech, Normal Cognition Objective - Vital Signs/Intake and Output Vital Signs (last 24 hours): Temp Pulse Resp BP Pulse Ox 97.6 F 68 21 123/75 94 L 05/23/18 16:00 05/23/18 16:01 05/23/18 16:01 05/23/18 16:01 05/23/18 10:01 - Labs Labs: 05/23/18 06:02 05/23/18 05:45 Assessment and Plan - Assessment and Plan (Free Text) Assessment: Hx of DM2. HTN, hyperlipidemia, obesity, Tobacco, FHx of [place] S/P Cath 1. Patent coronaries 2. Sluggish JOSE A 2 coronary flow 3. Normal EF Plan: ASA, aggressive Statins, BP, diet, smokiing cessation and weight management for now
[2018-05-25 19:11] VITALS: O2SAT 96
--- NOTE | 2018-05-25 20:52 | CARDCATH ---
PROCEDURE DATE: 05/22/2018 PROCEDURES: 1. Left heart catheterization. 2. Coronary angiogram. 3. Aortic root angiogram. REFERRING PHYSICIAN: Surya Nicole MD PERFORMING PHYSICIAN: Pablo Ellsworth MD CLINICAL INDICATIONS: 1. Chest pain. 2. Abnormal EKG suggestive of myocardial infarction. 3. Hypertension. 4. Hyperlipidemia. 5. Diabetes. BRIEF CLINICAL HISTORY: Magno Amin is a 53-year-old gentleman with history of hypertension, hyperlipidemia, diabetes, and obesity, admitted to [facility] with left-sided chest pressure. Previous EKG had shown ST elevations in inferior lead suggestive of acute inferior wall myocardial infarction. Code heart was activated. The patient was rushed to industrial laborer emergently. After informed consent, the patient was prepped and draped in the usual sterile fashion. Lidocaine 2% was given in the right groin for local anesthesia. The patient was premedicated with Afrin, Brilinta, and IV heparin. Using micropuncture technique, a 6-Pashto sheath was introduced into right common femoral artery. JL 3.5 diagnostic catheter was engaged into right coronary artery. Contrast was injected and right coronary angiogram was done. A JL 3.5, 6-Pashto catheter was engaged into the left main coronary artery. Contrast was injected and left coronary angiogram was done. Then, the catheter was exchanged to JR4, 6-Pashto diagnostic catheter. The catheter was inserted into left ventricle. LVEDP was measured. Contrast was injected and left ventricular angiogram was done. Then, the catheter was pulled back. Gradient across the aortic valve was measured. Then, the same catheter was engaged into right coronary artery. Contrast was injected and right coronary angiogram was done. The catheter was exchanged to a pigtail catheter. Pigtail catheter was inserted into the ascending aorta. Contrast was injected and ascending root angiogram was performed. The patient tolerated the procedure well. Postprocedure, Mynx closure device was deployed in the right groin with excellent hemostasis. FINDINGS: 1. Left main coronary artery is patent. 2. Left anterior descending and diagonal branches are patent. 3. Left circumflex and obtuse margins are patent. 4. Right coronary artery is dominant and patent, but the patient does have sluggish JOSE A-2 flow in the right coronary artery. 5. Left ventricular ejection fraction is normal. Approximate ejection fraction is 60%. No wall motion abnormalities noted. EDP is 18. No gradient across the aortic valve. 6. Aortic root angiogram was performed. There is no aortic dissection or aneurysm noted. IMPRESSION: 1. Patent coronaries. 2. JOSE A-2 flow in the right coronary artery. 3. Normal left ventricular systolic function. RECOMMENDATIONS: Aggressive medical management including aspirin and statins. Pablo Ellsworth MD
== END 2018-05-23 17:21 | disposition home or self-care (01) ==
LOC: C.ER 13:32 → C.9E 14:48 → C.5S 16:27 → C.9I 20:11
PROVIDERS: ADMIT Internal Medicine; ATTEND Internal Medicine
DX: R07.89 Other chest pain (principal); E11.9 Type 2 diabetes mellitus without complications; E78.5 Hyperlipidemia, unspecified; F17.210 Nicotine dependence, cigarettes, uncomplicated; I10 Essential (primary) hypertension
CPT/HCPCS: 71045; 80048; 80053; 80061; 82550; 82552; 82948; 83036; 83880; 84484; 85025; 85027; 87081; 93005; 93306; 93458; 93567; 99152; 99153; 99285; C1760; C1769; C1887; G0378; J1644; J1650; J2250; J3010; J7030; Q9967